=== PATIENT | female | born 1990 | race Caucasian/White ===

== ENCOUNTER 2017-09-23 07:23 | Emergency (ER) | payer SELFPAY ==
[2017-09-23] MEDS ORDERED: Metoclopramide HCl 10 MG/2 ML VIAL ONE (08:15)
[2017-09-23 08:18] LABS: #Eosinphils 0.1 thou/uL (0.0-0.7); #Lymphocytes 1.8 thou/uL (1.20-3.40); #Monocytes 0.5 thou/uL (0.11-0.59); #Neutrophils 5.6 thou/uL (1.40-6.50); %Basophils 0.3 % (0.0-1.0); %Eosinophils 1.1 % (0.0-10.0); %Lymphocytes 22.7 % (21.0-51.0); %Monocytes 6.5 % (0.0-10.0); %Neutrophils 69.5 % (42.0-75.0); Hemoglobin 12.8 g/dL (12.0-16.0); Mean Corpuscular HGB CONC 35.4 g/dL (32.0-36.0); Mean Corpuscular Hemoglobin 32.8 pg (27.0-31.0); Mean Corpuscular Volume 92.8 fl (81.0-99.0); Mean Platelet Volume 6.7 fL (7.4-10.4); Platelet Count 240 thou/uL (130-400); RBC Distribution Width 11.6 % (11.5-14.5)
[2017-09-23 08:20] LABS: Bilirubin Negative (Negative); Blood, Urine Negative (Negative); Clarity CLEAR (Clear); Glucose, Urine (Dipstick) Negative (Negative); Leukocyte Negative (Negative); Nitrite Negative (Negative); Protein, Urine (Dipstick) Negative (Neg-Trace); Specific Gravity, Urine 1.014 (1.002-1.036); Urobilinogen 0.2 mg/dL (0.2-1.0)
[2017-09-23 08:21] LABS: Pregnancy Test - Urine (BHCG) POSITIVE (Negative); Pregu Control Background? CLEAR/WHITE (CLR/WHITE); Pregu Control Bar Appear? YES (CONTROL BAR); Specific Gravity 1.014 (1.002-1.036)
[2017-09-23 08:22] LABS: BHCG - Serum POSITIVE (NEGATIVE); Pregs Control Background? CLEAR/WHITE (CLR/WHITE); Pregs Control Bar Appear? YES (CONTROL BAR)
[2017-09-23 08:45] LABS: ALT (SGPT) 13 U/L (8-55); AST (SGOT) 15 U/L (5-34); Albumin 3.9 g/dL (3.5-5.0); Alkaline Phosphatase 50 U/L (40-150); Anion Gap 13 mmol/L (10-20); BUN (Urea Nitrogen) 7 mg/dL (7.0-18.7); Bilirubin, Total 0.3 mg/dL (0.2-1.2); Calc. Creatinine Clearance 0 mL/min (70-130); Calcium 9.2 mg/dL (7.8-10.44); Carbon Dioxide 21 mmol/L (22-29); Chloride 105 mmol/L (98-107); Estimated GFR-MDRD Greater than 90; Globulin 2.8 g/dL (2.4-3.5); Glucose 97 mg/dL (70-105); Lipase 39 U/L (8-78); Protein, Total 6.7 g/dL (6.0-8.3); Sodium 135 mmol/L (136-145)
--- NOTE | 2017-09-23 09:31 | ULT ---
OBSTETRIC SONOGRAM TRANSABDOMINAL AND TRANSVAGINAL IMAGING: History: Pelvic pain. Early . FINDINGS: Gestational sac within the endometrial cavity contains a yolk sac and pole. Heart motion is dem onstrated at 171 beats/minute. Measurements correlate with 10 weeks 0 days gestational size. No free fluid within the pelvis. Right ovary is 3.5 cm and left is 2.8 cm. Each has a normal appearance and demonstrates good color an d spectral doppler flow. IMPRESSION: Single viable intrauterine gestation with estimated gestational age based on today's sonogram of 10 w eeks 0 days. Estimated date of delivery 04-21-18. POS: [facility]
== END 2017-09-23 10:50 | disposition home or self-care (01) ==
LOC: ERS 07:23
DX: O21.9 Vomiting of pregnancy, unspecified (principal); O99.331 Smoking (tobacco) complicating pregnancy, first trimester; F17.210 Nicotine dependence, cigarettes, uncomplicated; Z3A.10 10 weeks gestation of pregnancy
CPT/HCPCS: 36415; 76856; 80053; 81003; 81025; 83690; 84703; 85025; 96365; 96366; J2765

== ENCOUNTER 2017-10-24 07:11 | Emergency (ER) | payer MEDICAID, OTHER ==
[2017-10-24 07:50] LABS: Bilirubin Negative (Negative); Blood, Urine Negative (Negative); Clarity CLOUDY (Clear); Glucose, Urine (Dipstick) Negative (Negative); Leukocyte Negative (Negative); Nitrite Negative (Negative); Protein, Urine (Dipstick) Negative (Neg-Trace); Specific Gravity, Urine 1.014 (1.002-1.036); Urobilinogen 0.2 mg/dL (0.2-1.0)
[2017-10-24 08:43] LABS: #Eosinphils 0.2 thou/uL (0.0-0.7); #Lymphocytes 2.3 thou/uL (1.20-3.40); #Monocytes 0.5 thou/uL (0.11-0.59); #Neutrophils 7.4 thou/uL (1.40-6.50); %Basophils 0.4 % (0.0-1.0); %Eosinophils 1.5 % (0.0-10.0); %Lymphocytes 21.5 % (21.0-51.0); %Monocytes 5.2 % (0.0-10.0); %Neutrophils 71.4 % (42.0-75.0); Hemoglobin 13.1 g/dL (12.0-16.0); Mean Corpuscular HGB CONC 34.9 g/dL (32.0-36.0); Mean Corpuscular Hemoglobin 31.9 pg (27.0-31.0); Mean Corpuscular Volume 91.2 fL (78.0-98.0); Mean Platelet Volume 6.3 fL (7.4-10.4); Platelet Count 232 thou/uL (130-400); RBC Distribution Width 11.6 % (11.5-14.5); White Blood Cell (WBC) Count 10.4 thou/uL (4.8-10.8)
--- NOTE | 2017-10-24 08:50 | ULT ---
RIGHT UPPER QUADRANT ULTRASOUND: HISTORY: Right upper pain for a week. The patient is 12 weeks with nausea. TECHNIQUE: Multiplanar, baeza scale, and color Doppler images were obtained in a right upper quadrant abdominal u ltrasound. FINDINGS: The liver is normal in echogenicity without focal lesions or intrahepatic ductal dilatation. The gal lbladder is normal without stones, sludge, gallbladder wall thickening, or pericholecystic fluid. Th e common bile duct is normal measuring 4 mm. The visualized portions of the pancreas are unremarkable. The right kidney is normal in echogenicity without hydronephrosis or calculus and measures 11.8 cm in length. IMPRESSION: No significant abdominal abnormality. POS: [facility]
--- NOTE | 2017-10-24 09:03 | ULT ---
LIMITED ABDOMINAL UTLRASOUND: HISTORY: Right lower quadrant abdominal pain for a week. TECHNIQUE: Multiplanar, baeza scale, and color Doppler images were obtained in a limited ultrasound of the right lower quadrant of the abdomen. FINDINGS: The appendix is not visualized. No free fluid is seen in the abdomen. A is seen which is live with a heart rate of 150 b.p.m. IMPRESSION: 1. Live intrauterine . 2. Nonvisualization of the appendix. POS: [facility]
[2017-10-24 09:10] LABS: ALT (SGPT) 17 U/L (8-55); AST (SGOT) 16 U/L (5-34); Albumin 3.7 g/dL (3.5-5.0); Alkaline Phosphatase 51 U/L (40-150); Anion Gap 11 mmol/L (10-20); BUN (Urea Nitrogen) 5 mg/dL (7.0-18.7); Bilirubin, Total 0.2 mg/dL (0.2-1.2); Calc. Creatinine Clearance 0 mL/min (70-130); Calcium 8.9 mg/dL (7.8-10.44); Carbon Dioxide 23 mmol/L (22-29); Chloride 106 mmol/L (98-107); Estimated GFR-MDRD Greater than 90; Globulin 2.9 g/dL (2.4-3.5); Glucose 89 mg/dL (70-105); Lipase 26 U/L (8-78); Potassium 4.2 mmol/L (3.5-5.1); Protein, Total 6.6 g/dL (6.0-8.3); Sodium 136 mmol/L (136-145)
[2017-10-24] MEDS ORDERED: Fleet Enema 133 ML BOT FS SCH (11:45)
== END 2017-10-24 12:14 | disposition home or self-care (01) ==
LOC: ERS 07:11
DX: O99.611 Diseases of the digestive system complicating pregnancy, first trimester (principal); K59.00 Constipation, unspecified; O99.331 Smoking (tobacco) complicating pregnancy, first trimester; F17.210 Nicotine dependence, cigarettes, uncomplicated; Z3A.12 12 weeks gestation of pregnancy
CPT/HCPCS: 36415; 76705; 80053; 81003; 83690; 85025; 87077; 87086; 87186; 96361; 96374; J2270

== ENCOUNTER 2018-03-04 19:14 | Observation (INO) | payer OTHER ==
[2018-03-04 19:49] VITALS: BMI 32.7
[2018-03-04] MEDS: Sodium Chloride 0.9% 1,000 ML IV SCH (20:50)
--- NOTE | 2018-03-04 21:02 | PDOC.FPRHP ---
- History of Present Illness Chief Complaint: dysuria History of Present Illness: 27F @ 33w2d dated by LMP and 9w US presenting to L&D after being seen at [facility] for recurrent dysuria with increased urinary frequency and urgency. She endorses having a UTI "for my entire ". [facility] chart review shows a history of asymptomatic bacteriuria that was treated as well as multiple UTI's. Review of hospital EMR shows recent admission on 02/12 for pyelonephritis that was treated with rocephin. She was discharged on keflex and began having the symptoms mentioned above two days after finishing her oral abx. She denies new skin rash, subjective fevers, vaginal bleeding, LOF. Endorses normal movement. She reports no previous issues with UTI prior to being . This complicated by Rh negative status, Chlamydia with DEXTER - Allergies/Adverse Reactions Allergies Allergy/AdvReac Type Severity Reaction Status Date / Time No Known Allergies Allergy Unverified 03/04/18 19:37 - Home Medications Medication Instructions Recorded Confirmed Type No Known 03/04/18 03/04/18 History Comments: takes PNV - History PMHx: Chlamydia in with DEXTER, Rh negative s/p Rhogam @ 28 weeks, recurrent UTI/pyelo PSHx: none FHx: NC Social: history of marijuana use and tobacco use during - Review of Systems General: denies: fever/chills, fatigue Eyes: denies: vision changes ENT: denies: nasal congestion, rhinorrhea Respiratory: denies: cough, congestion Cardiovascular: denies: chest pain, palpitation Gastrointestinal: reports: nausea. denies: diarrhea, constipation, abdominal pain Genitourinary: reports: dysuria, polyuria. denies: discharge Skin: denies: rashes, lesions, jaundice Musculoskeletal: denies: pain, tenderness Neurological: denies: numbness Psychological: denies: anxiety, depression - Vital signs BP: [] HR: [] RR: [] Tmax: [] Pox: []% on [] Wt: [] - Physical Exam Constitutional: NAD, awake, alert and oriented HEENT: normocephalic and atraumatic, PERRLA, MMM Neck: supple, trachea midline Chest: no-tender to palpation Heart: RRR, normal S1/S2 Lungs: CTAB, no respiratory distress Abdomen: soft, non-tender, no masses/distention (no CVA tenderness) Neurological: no focal deficit, CN II-XII intact Skin: no rash/lesions, good turgor Psychiatric: normal mood and affect, good judgment and insight FMR H&P: Results - Labs Result Diagrams: 03/04/18 21:03 03/04/18 21:03 FMR H&P: A/P - Problem List (1) UTI (urinary tract infection) Current Visit: Yes Status: Acute Qualifiers: Urinary tract infection type: acute cystitis Assessment and Plan: -No fever or CVA tenderness at this time -straight cath for UA and culture -hx shows multiple UClx pansensitive so we will start rocephin 1 G -check VP3 and GC/C -NS @ 150 -CBC and CMP pending (2) History of pyelonephritis during Current Visit: Yes Status: Chronic Code(s): Z87.59 - PERSONAL HISTORY OF COMP OF PREG, CHLDBRTH AND THE PUERP; Z87.440 - PERSONAL HISTORY OF URINARY ( TRACT) INFECTIONS Assessment and Plan: -last treated on 02/12 -repeat renal US to assess for perinephric abscess -previous cultures were pansensitive (3) Rh negative status during Current Visit: Yes Status: Chronic Code(s): O09.899 - SUPERVISION OF OTHER HIGH RISK PREGNANCIES, UNSP TRIMESTER; Z67.91 - UNSPECIFIED BLOOD TYPE, RH NEGATIVE Qualifiers: Trimester: third trimester Qualified Code(s): O09.893 - Supervision of other high risk pregnancies, third trimester; Z67.91 - Unspecified blood type, Rh negative Assessment and Plan: -s/p Rhogam at 28 weeks (4) Marijuana use Current Visit: Yes Status: Chronic Code(s): F12.90 - CANNABIS USE, UNSPECIFIED, UNCOMPLICATED - Plan -admit for observation -f/u imaging and labwork -IVF and Abx FMR H&P: Upper Level - Plan Date/Time: 03/04/182055 I, [], have evaluated this patient and agree with findings/plan as outlined by business analytics intern resident. Pertinent changes/additions are listed here. Attending Addendum - Attending Addendum Date/Time: 03/05/18 1014 I personally evaluated the patient and discussed the management with Dr. Ruiz I agree with the History, Examination, Assessment and Plan documented above with any addition or exceptions noted below. 27F @ 33w2d dated by LMP and 9w US with recurrent UTI and inability to tolerate PO x 2 days Admit to antepartum service for IV antibiotics, repeat cultures. Needs twice daily NST during admission. Will check UDS for h/o marijuana use. If she is still using this may be contributing to her nausea/vomiting. Anticipate > 2 midnight stay pending urine culture.
[2018-03-04] MEDS ORDERED: Ondansetron ODT 4 MG TAB PO PRN (21:17)
[2018-03-04] MEDS ORDERED: Acetaminophen 325 MG TAB PO PRN (21:17)
[2018-03-04 21:20] LABS: #Eosinphils 0.1 thou/uL (0.0-0.7); #Lymphocytes 2.6 thou/uL (1.20-3.40); #Monocytes 0.7 thou/uL (0.11-0.59); #Neutrophils 6.9 thou/uL (1.40-6.50); %Basophils 0.2 % (0.0-1.0); %Eosinophils 0.6 % (0.0-10.0); %Lymphocytes 25.1 % (21.0-51.0); %Monocytes 6.4 % (0.0-10.0); %Neutrophils 67.7 % (42.0-75.0); Hemoglobin 11.6 g/dL (12.0-16.0); Mean Corpuscular HGB CONC 33.8 g/dL (32.0-36.0); Mean Corpuscular Hemoglobin 30.3 pg (27.0-31.0); Mean Corpuscular Volume 89.6 fL (78.0-98.0); Mean Platelet Volume 6.9 fL (7.4-10.4); Platelet Count 334 thou/uL (130-400); RBC Distribution Width 11.1 % (11.5-14.5); Red Blood Cell (RBC) Count 3.85 mill/uL (4.20-5.40); White Blood Cell (WBC) Count 10.2 thou/uL (4.8-10.8)
[2018-03-04 21:37] LABS: ALT (SGPT) 16 U/L (8-55); AST (SGOT) 19 U/L (5-34); Albumin 3.4 g/dL (3.5-5.0); Alkaline Phosphatase 95 U/L (40-150); Anion Gap 12 mmol/L (10-20); BUN (Urea Nitrogen) 7 mg/dL (7.0-18.7); Bilirubin, Total 0.3 mg/dL (0.2-1.2); Calc. Creatinine Clearance 199 mL/min (70-130); Calcium 8.8 mg/dL (7.8-10.44); Carbon Dioxide 21 mmol/L (22-29); Chloride 105 mmol/L (98-107); Estimated GFR-MDRD Greater than 90; Globulin 2.8 g/dL (2.4-3.5); Glucose 82 mg/dL (70-105); Potassium 3.6 mmol/L (3.5-5.1); Protein, Total 6.2 g/dL (6.0-8.3); Sodium 134 mmol/L (136-145)
[2018-03-04 21:48] LABS: Bilirubin Small (Negative); Blood, Urine Negative (Negative); Clarity CLOUDY (Clear); Glucose, Urine (Dipstick) Negative (Negative); Leukocyte Moderate (Negative); Nitrite Positive (Negative); Protein, Urine (Dipstick) 30 mg/dL (Neg-Trace); Specific Gravity, Urine 1.024 (1.002-1.036); pH, Urine 6.5 (5.0-9.0)
[2018-03-04 21:50] LABS: Bacteria/HPF Rare-Few HPF (None Seen); Pathc Cast-AUWi Flag 5.66 (0-2.49); RBC/HPF 0-3 HPF (0-3); WBC/HPF 21-50 HPF (0-3)
[2018-03-04 22:03] LABS: Hyaline Casts/LPF 0-3 HYALINE CAST LPF (0-3 Hyaline)
[2018-03-04] MEDS: cefTRIAXone\\ROCEPHIN 1 GM in Sodium Chloride 0.9% 100 ML IVPB SCH (22:35)
[2018-03-05] MEDS: Sodium Chloride 0.9% 1,000 ML IV SCH ×3 (03:25→19:00)
--- NOTE | 2018-03-05 07:16 | PDOC.FM ---
- Subjective Subjective: 27F @ 33w2d dated by LMP and 9w US here for pyelonephritis vs complicated UTI. Over night patient had continued n/v and has been unable to take PO. She denies other symptoms such as fever or back pain. No new symptoms. There were no acute events over night. She endorses movement and denies blood or fluid per vagina. - Objective MAR Reviewed: Yes Vital Signs & Weight: Vital Signs (12 hours) Temp Pulse Resp BP BP Pulse Ox 03/05/18 03:25 98.0 F 72 18 108/62 95 03/04/18 23:10 98.3 F 73 18 125/60 99 03/04/18 22:09 98.8 F 87 18 116/79 03/04/18 19:35 98.8 F 122 H 18 119/78 Weight Weight 94.801 kg I&O: 03/04/18 03/05/18 03/06/18 06:59 06:59 06:59 Intake Total 1103 Output Total 400 Balance 703 Result Diagrams: 03/04/18 21:03 03/04/18 21:03 Radiology Reviewed by me: Yes (Rads read pending. No obvious abscess ) <Ghanshyam Lott - Last Filed: 03/05/18 07:14> - Objective Vital Signs & Weight: Vital Signs (12 hours) Temp Pulse Resp BP BP Pulse Ox 03/05/18 09:00 98.1 F 65 20 114/59 L 99 03/05/18 07:35 98.1 F 65 20 114/59 L 99 03/05/18 03:25 98.0 F 72 18 108/62 95 03/04/18 23:10 98.3 F 73 18 125/60 99 Weight Weight 94.801 kg I&O: 03/04/18 03/05/18 03/06/18 06:59 06:59 06:59 Intake Total 1103 120 Output Total 400 200 Balance 703 -80 Result Diagrams: 03/04/18 21:03 03/04/18 21:03 <Yarely Ramires - Last Filed: 03/05/18 10:25> Phys Exam - Physical Examination Constitutional: NAD HEENT: PERRLA, moist MMs, sclera anicteric Neck: no JVD, full ROM Respiratory: clear to auscultation bilateral Cardiovascular: RRR, no significant murmur Gastrointestinal: soft, non-tender, positive bowel sounds Gravid abdomen Musculoskeletal: no edema, pulses present Neurological: non-focal, moves all 4 limbs Psychiatric: normal affect Skin: no rash, normal turgor <KaylieGhanshyam - Last Filed: 03/05/18 07:14> Dx/Plan (1) Complicated UTI (urinary tract infection) Code(s): N39.0 - URINARY TRACT INFECTION, SITE NOT SPECIFIED Status: Acute (2) History of pyelonephritis during Code(s): Z87.59 - PERSONAL HISTORY OF COMP OF PREG, CHLDBRTH AND THE PUERP; Z87.440 - PERSONAL HISTORY OF URINARY (TRACT) INFECTIONS Status: Chronic (3) Marijuana use Code(s): F12.90 - CANNABIS USE, UNSPECIFIED, UNCOMPLICATED Status: Chronic (4) Rh negative status during Code(s): O09.899 - SUPERVISION OF OTHER HIGH RISK PREGNANCIES, UNSP TRIMESTER; Z67.91 - UNSPECIFIED BLOOD TYPE, RH NEGATIVE Status: Chronic Qualifiers: Trimester: third trimester Qualified Code(s): O09.893 - Supervision of other high risk pregnancies, third trimester; Z67.91 - Unspecified blood type, Rh negative - Plan Plan: 1. Complicated UTI - patient is generally feeling better, however continues to be unable to tolerate PO. She has remained afebrile. All vitals have been normal other than 1 recorded episode of tachycardia. - Continue IV abx, and attempt to advance diet today. - Continue IVF until able to tolerate PO, monitor I/O - Urine cx pending - Read on renal US pending 2. 3T - no concerns at this time. Continue to monitor 3. Rh negative status - s/p Rhogam at 28 weeks 4. Marijuana use - direct care counselor on cessation Dispo: pt is currently stable and appears to be improving. Continue ip status until she is able to tolerate PO. Likely LOS 24-48 hours <Ghanshyam Lott - Last Filed: 03/05/18 07:14> (1) UTI (urinary tract infection) Status: Acute Qualifiers: Urinary tract infection type: acute cystitis (2) History of pyelonephritis during Code(s): Z87.59 - PERSONAL HISTORY OF COMP OF PREG, CHLDBRTH AND THE PUERP; Z87.440 - PERSONAL HISTORY OF URINARY (TRACT) INFECTIONS Status: Chronic (3) Rh negative status during Code(s): O09.899 - SUPERVISION OF OTHER HIGH RISK PREGNANCIES, UNSP TRIMESTER; Z67.91 - UNSPECIFIED BLOOD TYPE, RH NEGATIVE Status: Chronic Qualifiers: Trimester: third trimester Qualified Code(s): O09.893 - Supervision of other high risk pregnancies, third trimester; Z67.91 - Unspecified blood type, Rh negative (4) Marijuana use Code(s): F12.90 - CANNABIS USE, UNSPECIFIED, UNCOMPLICATED Status: Chronic <Yarely Ramires - Last Filed: 03/05/18 10:25> Attending Addendum - Attending Addendum Date/Time: 03/05/18 1020 I personally evaluated the patient and discussed the management with Dr. Lott I agree with the History, Examination, Assessment and Plan documented above with any addition or exceptions noted below. 27F @ 33w3d dated by LMP and 9w US with UTI and inability to tolerate PO intake. Has eaten this morning without nausea/vomiting. She has continued dysuria and mild suprapubic pain. US normal, no evidence of absces. Continue IV antibiotics until urine culture is finalized. Dispo: Continued berg rest <Yarely Ramires - Last Filed: 03/05/18 10:25>
--- NOTE | 2018-03-05 07:39 | ULT ---
RENAL ULTRASOUND: 03/04/18 HISTORY: Recent pyelonephritis. Evaluate for perinephric abscess. COMPARISON: None. TECHNIQUE: Sagittal and transverse imaging of the kidneys is performed. FINDINGS: Bilaterally, no hydronephrosis. Right kidney has a normal echotexture measuring 10.8 x 4.6 x 4.8 cm. Left ovary measures 11.7 x 6.1 x 4.6 cm. Bladder is decompressed and cannot be further assessed. No obvious perinephric fluid or abscess. IMPRESSION: No obvious perinephric fluid or abscess. POS: [facility]
[2018-03-05 11:14] LABS: Amphetamine Not Detected (NotDetected); Barbiturates Screen Not Detected (NotDetected); Benzodiazepine Screen Not Detected (NotDetected); Cocaine Metabolite Screen Not Detected (NotDetected); Medtox Control Line Valid? VALID (VALID); Medtox Reader # READER 1; Methadone Not Detected (NotDetected); Methamphetamine Not Detected (NotDetected); Opiate Screen Not Detected (NotDetected); Oxycodone Screen Not Detected (NotDetected); Phencyclidine (PCP) Not Detected (NotDetected); THC/Cannabinoid Screen Detected (NotDetected); Tricyclic Screen Not Detected (NotDetected)
[2018-03-05] MEDS: cefTRIAXone\\ROCEPHIN 1 GM in Sodium Chloride 0.9% 100 ML IVPB SCH (22:09)
[2018-03-06] MEDS: Sodium Chloride 0.9% 1,000 ML IV SCH ×2 (02:45→09:15)
--- NOTE | 2018-03-06 08:14 | PDOC.FM ---
- Subjective Subjective: Feeling well this morning. No fever, dysuria, back pain. Feeling baby move all the time. Denies contractions of leakage of fluid. - Objective MAR Reviewed: Yes Vital Signs & Weight: Vital Signs (12 hours) Temp Pulse Resp BP BP Pulse Ox 03/06/18 05:45 99 03/06/18 04:25 97.7 F 71 18 110/57 L 03/05/18 23:15 97.7 F 69 18 117/63 100 Weight Weight 94.801 kg I&O: 03/05/18 03/06/18 03/07/18 06:59 06:59 05:59 Intake Total 1103 2341 Output Total 400 1000 Balance 703 1341 Result Diagrams: 03/04/18 21:03 03/04/18 21:03 Phys Exam - Physical Examination Constitutional: NAD HEENT: moist MMs, sclera anicteric Neck: supple Respiratory: no wheezing, clear to auscultation bilateral Cardiovascular: RRR, no significant murmur Gastrointestinal: soft, non-tender gravid Musculoskeletal: no edema Neurological: non-focal, moves all 4 limbs Psychiatric: normal affect, A&O x 3 Dx/Plan (1) Complicated UTI (urinary tract infection) Code(s): N39.0 - URINARY TRACT INFECTION, SITE NOT SPECIFIED Status: Acute (2) History of pyelonephritis during Code(s): Z87.59 - PERSONAL HISTORY OF COMP OF PREG, CHLDBRTH AND THE PUERP; Z87.440 - PERSONAL HISTORY OF URINARY (TRACT) INFECTIONS Status: Chronic (3) Marijuana use Code(s): F12.90 - CANNABIS USE, UNSPECIFIED, UNCOMPLICATED Status: Chronic (4) Rh negative status during Code(s): O09.899 - SUPERVISION OF OTHER HIGH RISK PREGNANCIES, UNSP TRIMESTER; Z67.91 - UNSPECIFIED BLOOD TYPE, RH NEGATIVE Status: Chronic Qualifiers: Trimester: third trimester Qualified Code(s): O09.893 - Supervision of other high risk pregnancies, third trimester; Z67.91 - Unspecified blood type, Rh negative - Plan Plan: 27 yo at 33.3 here for complicated UTI that failed OP management 1. Complicated UTI - Afebrile - Continue IV abx, and attempt to advance diet today. - Continue IVF until able to tolerate PO, monitor I/O - Urine cx pizano-sensitive e-coli (25-50 cfu) - Renal sono negative - Will need DEXTER outpatient - Has f/u appointment on Thursday at [facility] 2. N/V - Controlled on PO zofran at this time - Will she how she does with breakfast today 2. 3T - qshft NST - +FM 3. Rh negative status - s/p Rhogam at 28 weeks 4. Marijuana use - Encouraged cessation 5. BV - vaginal metronidazole x5 days Dispo: Likely discharge today
[2018-03-06 12:12] VITALS: BP 111/59; TEMP 98.2
[2018-03-06] MEDS ORDERED: AMOXicillin 250 MG CAP PO SCH (15:00)
--- NOTE | 2018-03-06 20:23 | DN-2 ---
DATE OF ADMISSION: 03/04/2018 DATE OF DISCHARGE: 03/06/2018 ADMITTING ATTENDING: Yarely Ramires D.O. DISCHARGE ATTENDING: Rudi Hankins MD RESIDENT: Annmarie Huff M.D. PRIMARY DIAGNOSIS: Complicated urinary tract infection. SECONDARY DIAGNOSES: 1. Term intrauterine at 33 weeks. 2. History of recent pyelonephritis. 3. History of chlamydia and with recent intensive care. 4. Rh negative. 5. Marijuana abuse. 6. Bacterial vaginosis. DISCHARGE MEDICATIONS: 1. Amoxicillin 500 mg p.o. t.i.d. x8 additional days. 2. Macrobid 100 mg p.o. daily to start after amoxicillin. 3. Metronidazole 1 vaginal applicator daily x5 days. 4. vitamins. 5. Zofran 4 mg p.o. sublingual q.4. hours. p.r.n. nausea. IMAGING: Renal ultrasound on 03/04/2018 showed no evidence of hydronephrosis or perinephric abscess. HOSPITAL COURSE: The patient is a 27-year-old female who is 30 weeks who presented to the E [facility] for increasing urinary frequency and urgency. She and was started on suppression t herapy with Keflex after last admission. She was found to have E. coli which was pansensitive and he r urine and after 2 days of Rocephin, is being discharged on amoxicillin to complete a 10-day course of medications. She has close followup on Thursday with Dr. Elmore. She also noted to have ongoing nausea and vomiting; however, prior to discharge was tolerating p.o. with breakfast and lunch well wi th Zofran p.r.n. DISCHARGE INSTRUCTIONS: 1. Location: Home. 2. Diet: As tolerated. 3. Activity: As tolerated. 4. Followup: care with Dr. Elmore or Dr. Huff on Thursday of this coming week. The alcon ent should have monthly urine cultures to follow after this or prompt evaluation if symptoms return.
[2018-03-06] MEDS ORDERED: metroNIDAZOLE 0.75% 70 GM TUBE VAG SCH (21:00)
[2018-03-07 19:32] LABS: Chlamydia by PCR Not Detected (NotDetected); GC by PCR Not Detected (NotDetected)
== END 2018-03-06 15:00 | disposition home or self-care (01) ==
LOC: L&D/OP 19:14 → L&D 22:05 → 3SW 23:30
PROVIDERS: ADMIT Family Medicine; ATTEND Family Medicine
DX: O23.13 Infections of bladder in pregnancy, third trimester (principal); O23.593 Infection of other part of genital tract in pregnancy, third trimester; B96.89 Other specified bacterial agents as the cause of diseases classified elsewhere; O99.323 Drug use complicating pregnancy, third trimester; F12.10 Cannabis abuse, uncomplicated; O36.0930 Maternal care for other rhesus isoimmunization, third trimester, not applicable or unspecified; Z3A.33 33 weeks gestation of pregnancy; Z87.440 Personal history of urinary (tract) infections; Z67.91 Unspecified blood type, Rh negative
CPT/HCPCS: 51701; 59025; 76770; 80053; 80306; 81001; 85025; 87077; 87086; 87186; 87480; 87491; 87510; 87591; 87660; 96361; 96365; 96376; 99285; G0378; J0696; J7050; Q0162